=== PATIENT | male | born 1985 | race Caucasian/White ===

== ENCOUNTER 2022-03-01 08:45 | Emergency (ER) | payer OTHER ==
[2022-03-01] MEDS ORDERED: Aluminum Hydroxide/Magnesium Hydroxide/Simethicone Susp 30 ML Cup PO ONE (09:21)
[2022-03-01 09:58] LABS: ESTIMATED GFR 73 mL/min (>60); TROPONIN I HIGH SENSITIVITY 4.3 pg/mL (<=60.3)
== END 2022-03-01 10:42 | disposition home or self-care (01) ==
LOC: JP.ED 08:45
DX: R07.89 Other chest pain (principal); Z88.0 Allergy status to penicillin; F17.210 Nicotine dependence, cigarettes, uncomplicated
CPT/HCPCS: 36415; 80053; 84484; 85025; 93005; 99285; A9270